=== PATIENT | male | born 1965 | race Caucasian/White ===

== ENCOUNTER → 2017-03-01 | Emergency (ER) | payer OTHER ==
[~2017-03-01] VITALS: Ht 172.7 cm; Wt 93.0 kg
[~2017-03-01] MED LIST: AZITHROMYCIN500 MG; CORTISPORIN EAR10 M1 OT; PROVENTIL HFA6.7 GM IH
== END | disposition home or self-care (01) ==
LOC: ER 14:38
DX: J45.998 Other asthma (principal); H66.91 Otitis media, unspecified, right ear

== ENCOUNTER 2018-02-07 11:00 | Emergency (ER) | payer OTHER ==
[~2018-02-07] VITALS: Ht 172.7 cm; Wt 93.0 kg
[2018-02-07] MEDS ORDERED: SYMBICORT 16010.2 GM IH (11:47)
[2018-02-07] MEDS ORDERED: IBUPROFEN800 MG PO (14:27)
== END 2018-02-07 14:32 | disposition home or self-care (01) ==
LOC: ER 11:00
DX: N44.8 Other noninflammatory disorders of the testis (principal)

== ENCOUNTER 2018-04-06 08:18 | Outpatient (CLI) | payer OTHER ==
[~2018-04-06 08:18] MED LIST changes: +IBUPROFEN800 MG PO; +SYMBICORT 16010.2 GM IH
== END 2018-04-06 08:38 | disposition home or self-care (01) ==
LOC: LAB 08:18
DX: R97.20 Elevated prostate specific antigen [PSA] (principal); E55.9 Vitamin D deficiency, unspecified; E03.8 Other specified hypothyroidism; E78.49 Other hyperlipidemia; N40.0 Benign prostatic hyperplasia without lower urinary tract symptoms

== ENCOUNTER 2018-04-06 09:12 | Outpatient (CLI) | payer OTHER | END 2018-04-06 09:45 | disposition home or self-care (01) | LOC: SONOGRAMA 09:12 | DX: N40.0 Benign prostatic hyperplasia without lower urinary tract symptoms (principal); I86.1 Scrotal varices; R31.29 Other microscopic hematuria ==

== ENCOUNTER 2018-10-16 10:08 | Emergency (ER) | payer OTHER ==
[~2018-10-16] VITALS: Ht 172.7 cm; Wt 95.3 kg
== END 2018-10-16 16:43 | disposition home or self-care (01) ==
LOC: ER 10:08 → CPU-OBS 10:27 → ER 10:27
DX: R07.89 Other chest pain (principal); J45.909 Unspecified asthma, uncomplicated
CPT/HCPCS: 94640; 93005; G0378; G0379

== ENCOUNTER 2018-12-14 07:44 | Outpatient (CLI) | payer OTHER | END 2018-12-14 07:50 | disposition home or self-care (01) | LOC: SONOGRAMA 07:44 | DX: N40.0 Benign prostatic hyperplasia without lower urinary tract symptoms (principal); N45.3 Epididymo-orchitis; T86.19 Other complication of kidney transplant; N20.0 Calculus of kidney ==

== ENCOUNTER → 2020-11-24 | Emergency (ER) | payer OTHER ==
[~2020-11-24] VITALS: Ht 170.2 cm; Wt 88.5 kg
[~2020-11-24] MED LIST changes: +KETO10TA2 PO
== END | disposition home or self-care (01) ==
LOC: ER 14:56
DX: R10.32 Left lower quadrant pain (principal)

== ENCOUNTER 2023-01-02 13:12 | Emergency (ER) | payer OTHER ==
[~2023-01-02] VITALS: Ht 172.7 cm; Wt 95.3 kg
[2023-01-02 15:27] LABS: HEMATOCRIT 41.2 % (39.0-48.0); HEMOGLOBIN 13.9 g/dL (13-16.00); MEAN CELL VOLUME 83.2 fL (80.0-100.00); MEAN CORPUSCULAR HGB CONC 33.6 g/dl (32.0-36.0); PLATELET COUNT 280 K/uL (150-450); RED BLOOD COUNT 4.95 M/uL (4.00-6.00); RED CELL DISTRIBUTION WIDTH 15.5 % (11.5-14.5)
== END 2023-01-02 17:44 | disposition home or self-care (01) ==
LOC: ER 13:12
PROVIDERS: General Practice
DX: J45.901 Unspecified asthma with (acute) exacerbation (principal); Z20.822 Contact with and (suspected) exposure to COVID-19

== ENCOUNTER 2023-01-26 20:53 | Emergency (ER) | payer OTHER ==
[~2023-01-26] VITALS: Ht 172.7 cm; Wt 95.3 kg
[2023-01-27 01:18] LABS: HEMATOCRIT 42.3 % (39.0-48.0); MEAN CELL VOLUME 82.7 fL (80.0-100.00); MEAN CORPUSCULAR HEMOGLOBIN 27.4 pg (27.00-32.0); MEAN CORPUSCULAR HGB CONC 33.1 g/dl (32.0-36.0); PLATELET COUNT 289 K/uL (150-450); RED BLOOD COUNT 5.12 M/uL (4.00-6.00); RED CELL DISTRIBUTION WIDTH 15.1 % (11.5-14.5)
[2023-01-27 01:38] LABS: CALCIUM 9.2 mg/dL (8.5-10.1); CREATININE SERUM 1.5 mg/dL (0.70-1.30); GFR 48.07; POTASSIUM 3.8 mEq/L (3.5-5.1)
[2023-01-27 02:59] LABS: PH,URINE 7.5 (5.0-8.0); URINE BILIRRUBIN Negative (NEGATIVE); URINE BLOOD Moderate; URINE COLOR Yellow; URINE GLUCOSE Negative (NEGATIVE); URINE LEUKOCYTE Negative; URINE NITRATE Negative; URINE PROTEIN Trace (NEGATIVE); URINE UROBILINOGEN 0.2 E.U./dl
[2023-01-27 03:00] LABS: URINE BACTERIA 11.3 uL (0.0-1933); URINE RBC 439.8 uL (0.0-20.8); URINE WBC 9.1 uL (0.0-23.2)
[2023-01-27 03:05] LABS: URINE APPEARANCE CLOUDY; URINE EPITHELIAL CELLS 1.3 uL (0.0-38.8)
[2023-01-27] MEDS ORDERED: TAMS0.4C PO (05:05)
[2023-01-27] MEDS ORDERED: KETO10TA2 PO (05:05)
== END 2023-01-27 05:09 ==
LOC: ER 20:54
PROVIDERS: General Practice
DX: N20.0 Calculus of kidney (principal); R10.9 Unspecified abdominal pain